=== PATIENT | male | born 1950 | race Caucasian/White ===

== ENCOUNTER 2022-11-23 14:50 | Inpatient (IN) ==
--- NOTE | 2022-11-23 18:24 | DR.UPDATE ---
H&P UPDATE Review Yes Any changes to H&P?: No
[2022-11-23 18:57] LABS: BASOPHILS # (AUTO) 0.1 X10^3/uL (0.0-0.1); BASOPHILS % (AUTO) 0.6 % (0.2-1.0); EOSINOPHILS # (AUTO) 0.3 x10^3/uL (0.0-0.2); EOSINOPHILS % (AUTO) 3.1 % (0.9-2.9); HEMATOCRIT 47.3 % (42.0-54.0); HEMOGLOBIN 16.6 g/dL (13.5-18.0); LYMPHOCYTES # (AUTO) 1.6 X10^3/uL (1.3-2.9); LYMPHOCYTES % (AUTO) 16.2 % (21.0-51.0); MEAN CORPUSCULAR HGB CONC 35.1 g/dL (33.0-35.0); MEAN CORPUSCULAR VOLUME 90.9 fL (80.0-100.0); MEAN PLATELET VOLUME 8.9 fL (7.4-11.0); MONOCYTES # (AUTO) 0.9 x10^3/uL (0.3-0.8); MONOCYTES % (AUTO) 9.1 % (0.0-13.0); NEUTROPHILS # (AUTO) 6.9 x10^3/uL (2.2-4.8); PLATELET COUNT 152 X10^3/uL (150.0-450.0); RED CELL DISTRIBUTION WIDTH 13.6 % (11.6-16.5); WHITE BLOOD COUNT 9.7 X10^3/uL (3.6-10.0)
[2022-11-23 19:10] LABS: ALANINE AMINOTRANSFERASE 20 Units/L (12-78); ALBUMIN 4.4 g/dL (3.4-5.0); ALKALINE PHOSPHATASE 71 Units/L (46-116); ASPARTATE AMINO TRANSFERASE 21 Units/L (15-37); BLOOD UREA NITROGEN 18 mg/dL (7-18); CALCIUM 8.8 mg/dL (8.5-10.1); CARBON DIOXIDE 28.6 mmol/L (21-32); CHLORIDE 100 mmol/L (98-107); CREATININE 0.97 mg/dL (0.70-1.30); GLUCOSE 106 mg/dL (65-99); POTASSIUM 3.3 mmol/L (3.5-5.1); SODIUM 138 mmol/L (136-145); TOTAL PROTEIN 7.4 g/dL (6.4-8.2); eGFR NON BLACK RACES > 60 (>60)
[2022-11-23 19:17] VITALS: BMI 28.6
--- NOTE | 2022-11-23 19:48 | EKG ---
Test Reason : surgery Blood Pressure : */* mmHG Vent. Rate : 53 BPM Atrial Rate : 53 BPM P-R Int : 130 ms QRS Dur : 98 ms QT Int : 452 ms P-R-T Axes : 16 -12 -16 degrees QTc Int : 424 ms Sinus bradycardia Nonspecific ST abnormality Abnormal ECG No previous ECGs available Confirmed by Kurt Rice ([id number]) on 11/24/2022 12:07:26 PM Referred By: Confirmed By: Kurt Rice
[2022-11-23] MEDS ORDERED: K-DUR TAB 20 MEQ PO ONE (20:00)
[2022-11-23] MEDS ORDERED: CONSULT PHARMACY - POTASSIUM & MAGNESIUM XX SCH (20:00)
[2022-11-23] MEDS: LR 1,000 ML IV 1,000 ML IV SCH (20:11)
[2022-11-23] MEDS: LOPRESSOR TAB 25 MG PO SCH (20:11)
[2022-11-23] MEDS: CRESTOR TAB 10 MG PO SCH (20:11)
[2022-11-23] MEDS: AMBIEN PO PRN (21:09)
[2022-11-23] MEDS: NEURONTIN CAP 400 MG PO SCH (21:09)
[2022-11-24] MEDS: NEURONTIN CAP 400 MG PO SCH ×3 (05:08→21:13)
[2022-11-24] MEDS ORDERED: NS 100 ML IV 100 ML ONE (05:26)
[2022-11-24] MEDS ORDERED: OMNIPAQUE 350 mg/mL 100 mL BTL 100 ML ONE (05:26)
[2022-11-24] MEDS ORDERED: OMNIPAQUE 350 mg/mL 50 mL BTL 50 ML ONE (05:26)
[2022-11-24] MEDS ORDERED: CONSULT PHARMACY - POTASSIUM & MAGNESIUM XX SCH (07:00)
--- NOTE | 2022-11-24 07:16 | CT ---
HISTORYCRITICAL ISCHEMIA LEFT LEG; REST PAIN RICARDO LEGSSTUDYCTA AORTA WITH RUNOFFCOMPARISONNoneTECHNIQUECTA of the abdomen and pelvis with bilateral lower extremity runoff obtained without and with IV contrast. Dose reduction techniques including Automated Exposure Control (AEC) and adjustment of mA and kV were utilized.FINDINGSVisualized portions of the lower thorax demonstrate no acute process. Post sternotomy changes. Coronary and aortic calcifications. Aortic valve prosthesis.No acute osseous abnormality. No acute soft tissue abnormality in either lower extremity.No evidence of aortic aneurysm or dissection. Scattered atherosclerotic calcifications throughout the aorta. The celiac artery, SMA, bilateral renal arteries, and SILVA appear patent with scattered atherosclerotic disease. Incidental duplicated bilateral renal arteries. The bilateral common, internal, and external iliac arteries are patent with multifocal atherosclerotic disease. Left external iliac stent is patent.The right common and deep femoral arteries are patent. Complete occlusion of the right superficial femoral artery with reconstitution at the right popliteal artery. The right anterior tibial, posterior tibial, and peroneal arteries are patent to the foot. Multifocal high-grade narrowing of the right posterior tibial artery.The left common and deep femoral arteries are patent. Complete occlusion of the left superficial femoral artery with reconstitution at the popliteal artery. The left anterior tibial, posterior tibial, and peroneal arteries are patent to the foot. Multifocal high-grade stenosis of the left posterior tibial artery.The liver, spleen, pancreas, bilateral adrenal glands, and bilateral kidneys demonstrate no acute process. Prior cholecystectomy.No evidence of bowel obstruction. Diverticulosis without evidence of diverticulitis. Moderate colonic stool. The appendix is not definitively visualized. No secondary signs of appendicitis. Small fat filled right inguinal hernia.The bladder is unremarkable. No free air or fluid. Prominent prostate.IMPRESSIONPatent 3 vessel runoff to both feet. Multifocal high-grade narrowing of the left and right posterior tibial arteries. 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
--- NOTE | 2022-11-24 07:26 | RAD ---
HISTORYPreop left lower extremity ischemiaSTUDYChest AP portableCOMPARISONNoneFINDINGSPatient is status post median sternotomy and valve replacement. Heart size is normal. Salome are normal. Lungs are generally hyperinflated but free of acute infiltrates. No pleural effusions are identified. Bony thorax is unremarkable.IMPRESSIONPostsurgical changes as aboveLungs hyperinflated but free of acute infiltrates consistent with COPD in the appropriate clinical settingElectronically signed by: CARLEY LANGE (Nov 24, 2022 07:24:23)
[2022-11-24] MEDS: PROTONIX TAB 40 MG PO SCH (08:41)
[2022-11-24] MEDS: LR 1,000 ML IV 1,000 ML IV SCH ×2 (08:41→21:15)
[2022-11-24] MEDS: K-DUR TAB 20 MEQ PO SCH ×2 (08:41→10:33)
[2022-11-24] MEDS: ASPIRIN EC 81 MG PO SCH (08:42)
[2022-11-24] MEDS: FLOMAX PO SCH (08:42)
--- NOTE | 2022-11-24 13:13 | NOTE.SOAP ---
Soap Note Note for Day of Date of Exam: 11/24/22 Subjective Data Subjective Data: Admitted with severe b/l rest pain of LE , L> R . CTA shows b/l SFA occlusion. Objective Data Temperature: 98.5 F Pulse Rate: 57 Respiratory Rate: 20 Blood Pressure: 135/65 O2 Sat by Pulse Oximetry: 94 Objective Data: No palpable pulses either ankle Assessment Assessment: b/l critiical LE ischemia Plan Plan: Aortogram, arteriogram left leg , probable atherectomy, angioplasty possible stent of left SFA artery tomorrow.
[2022-11-24] MEDS: LOPRESSOR TAB 25 MG PO SCH ×2 (14:08→21:13)
[2022-11-24] MEDS: PERCOCET TAB 5/325 MG PO PRN ×2 (17:22→23:01)
[2022-11-24] MEDS: CRESTOR TAB 10 MG PO SCH (21:13)
[2022-11-24] MEDS: AMBIEN PO PRN (21:14)
[2022-11-25] MEDS: NEURONTIN CAP 400 MG PO SCH ×4 (05:14→21:50)
[2022-11-25] MEDS ORDERED: CONSULT PHARMACY - POTASSIUM & MAGNESIUM XX SCH (07:00)
[2022-11-25] MEDS: LOPRESSOR TAB 25 MG PO SCH ×2 (08:10→20:30)
[2022-11-25] MEDS ORDERED: DIPRIVAN VIAL 20 ML ONE ×2 (09:54→14:11)
[2022-11-25] MEDS ORDERED: KETAMINE 50 MG/5 ML-NACL SYRNG ONE (09:54)
[2022-11-25] MEDS ORDERED: FENTANYL VIAL INJ 100 mcg ONE (09:54)
[2022-11-25] MEDS ORDERED: PRECEDEX INJ VIAL IVP ONE (09:54)
[2022-11-25] MEDS ORDERED: VERSED ONE (09:54)
[2022-11-25] MEDS ORDERED: OFIRMEV IV 1000 MG VIAL 1,000 MG/100 ML VIAL IV ONE (09:54)
[2022-11-25] MEDS ORDERED: PEPCID 20 MG VIAL ONE (09:56)
[2022-11-25] MEDS ORDERED: ZOFRAN INJ 4 MG VIAL ONE (09:56)
[2022-11-25] MEDS ORDERED: DILAUDID INJ IVP ONE (10:36)
[2022-11-25] MEDS: LR 1,000 ML IV 1,000 ML IV SCH ×2 (11:32→22:00)
[2022-11-25] MEDS ORDERED: POTASSIUM CHLORIDE INJ 40 MEQ VIAL 40 MEQ in NS 1/2 500 ML IV 500 ML IV ONE (12:00)
[2022-11-25] MEDS ORDERED: NS 100 ML IV 100 ML ONE (12:30)
[2022-11-25] MEDS ORDERED: ANCEF VIAL 1 GRAM ONE (12:30)
[2022-11-25] MEDS ORDERED: HEPARIN SODIUM IN D5W 75,000 UNITS/1,500 ML BAG ONE (13:06)
[2022-11-25] MEDS ORDERED: MARCAINE 0.5% ONE (13:06)
[2022-11-25] MEDS ORDERED: XYLOCAINE 2 % (PLAIN) ONE (13:12)
[2022-11-25] MEDS ORDERED: DECADRON INJ ONE (13:23)
[2022-11-25] MEDS ORDERED: ROBINUL ONE (13:29)
[2022-11-25] MEDS ORDERED: EPHEDRINE SULFATE INJ ONE (13:35)
[2022-11-25] MEDS ORDERED: VISIPAQUE 100 ML ONE (13:42)
[2022-11-25] MEDS ORDERED: HEPARIN SODIUM INJ 5000 UNITS ONE (13:59)
[2022-11-25] MEDS ORDERED: NS 1,000 ML IV 1,000 ML ONE (14:07)
[2022-11-25] MEDS ORDERED: PROTAMINE SULFATE 50 MG VIAL ONE (14:57)
[2022-11-25] MEDS: ASPIRIN EC 81 MG PO SCH (15:28)
[2022-11-25] MEDS: PROTONIX TAB 40 MG PO SCH (15:39)
[2022-11-25] MEDS: FLOMAX PO SCH (15:39)
[2022-11-25] MEDS: XARELTO PO SCH (20:29)
[2022-11-25] MEDS: CRESTOR TAB 10 MG PO SCH (20:30)
[2022-11-25] MEDS: PERCOCET TAB 5/325 MG PO PRN (20:31)
[2022-11-25] MEDS ORDERED: K-DUR TAB 20 MEQ PO SCH (21:00)
[2022-11-25] MEDS: AMBIEN PO PRN (21:50)
[2022-11-26] MEDS: PERCOCET TAB 5/325 MG PO PRN (01:57)
[2022-11-26 05:20] LABS: BLOOD UREA NITROGEN 8 mg/dL (7-18); CALCIUM 8.4 mg/dL (8.5-10.1); CHLORIDE 103 mmol/L (98-107); COR NA(FOR HYPERGLY) 137 mmol/L (136-145); CREATININE 0.87 mg/dL (0.70-1.30); GLUCOSE 114 mg/dL (65-99); POTASSIUM 4.5 mmol/L (3.5-5.1); SODIUM 137 mmol/L (136-145); eGFR NON BLACK RACES > 60 (>60)
[2022-11-26] MEDS: NEURONTIN CAP 400 MG PO SCH (05:46)
[2022-11-26 09:17] VITALS: BP 132/61; PULSE 56; RESP 20; TEMP 97.6; O2SAT 97
[2022-11-26] MEDS: ASPIRIN EC 81 MG PO SCH (10:11)
[2022-11-26] MEDS: XARELTO PO SCH (10:11)
[2022-11-26] MEDS: PROTONIX TAB 40 MG PO SCH (10:12)
[2022-11-26] MEDS: LOPRESSOR TAB 25 MG PO SCH (10:12)
[2022-11-26] MEDS: FLOMAX PO SCH (10:12)
--- NOTE | 2022-11-30 19:58 | OR.IMMED ---
IMMEDIATE POST-OP NOTE Immediate Post-Op Note Pre-Op Diagnosis: Critical ischemia critical ischemia left leg with rest pain Post-Op Diagnosis: same Procedure: aortogram , arteriogram left leg, atherectomy and stenting of the entire left superficial femoral artery Surgeon/Time Buyer: Allison Findings: multiple bilateral iliac artery stents, completely occluded left superficial femoral artery from just beyond its take off all the way to the popliteal artery Estimated Blood Loss: 200cc Complications: none, urine noted to be red when Harley catheter place will observe and leave Harley in for now Progress Notes: return to floor leave Harley catheter in place. Begin aspirin and Xarelto ,probably discharge tomorrow. Will need right leg superficial femoral artery occlusion addressed in the near future. Right leg not as bad as the left.
--- NOTE | 2022-12-01 09:10 | DR.OPNOTE ---
OP NOTE Pre-Op Diagnosis: Critical ischemia left leg Post-Op Diagnosis: same Procedure Date Date Of Procedure: 11/25/22 Procedure: PROCEDURE: DIAGNOSTIC AORTOGRAM, DIAGNOSTIC ARTERIOGRAM LEFT LEG , ATHERECTOMY AND DRUG COATED STENTING OF ENTIRE LEFT SUPERFICIAL FEMORAL ARTERY NARRATIVE : The patient was taken to the operative suite and place in the supine position. The right groin and entire left leg were prepped and draped in sterile fashion. The patient was given intravenous sedation supervised by myself. Time out for the procedure obtained. Ultrasound used to identify the right femoral artery and the skin overlying it infiltrated with 0.5% Marcaine. Ultrasound then used to guide puncture of the right femoral artery and a 0.012 inch guide wire was placed. Incision made over the guide wire at the skin edge with a # 11 knife blade and a micro sheath placed over the guide wire into the right femoral artery The small guidewire exchanged for a 0.035 inch Advantage glide wire and the micro sheath exchanged for a 5 Fr vascular sheath. Patient given 5000 units of intravenous heparin. Omni catheter was placed over the guide wire into the aorta and diagnostic aortogram carried out with the power injector showing normal aorta and iliac arteries . Omni catheter was used to steer the guide wire down the left common iliac artery to the distal left external iliac artery . Omni catheter was exchanged for a [place] catheter and sequential arteriograms carried out of the left lower extremity showing complete occlusion of the left superficial femoral artery beginning at his take off with reconstitution of the mid popliteal artery . The 5 Fr sheath in the right groin was exchanged for a 7 Fr destination sheath which was parked in distal left external iliac artery .[place] catheter and the guide wire were used to traverse the arteries of the left leg ultimately ending in the left peroneal artery . This was selective catheterization. 0.035 inch wire removed and exchanged for a 0.014 inch wire. Over this wire we placed the [place] atherectomy device and performed atherectomy of the entire left superficial femoral artery . At this point three Caroline drug coated stents were placed sequentially in the left superficial femoral artery beginning distally with an Caroline 6mmx 150 mm drug coated stent , then another 6mx 150 mm Caroline drug coated stent and finally an Caroline 7mm x 150 mm Caroline drug coated stent .Stents had minimal overlap and the were all post balloon dilated with a [place] 5 mmx 200 mm angioplasty balloon. At the completion of this a follow up arteriogram showed excellent flow all the way to the left foot . All wires and devices removed. The 7 Fr sheath was pulled back into the aorta and a 0.035 inch wire placed. The destination sheath exchanged for an Angioseal device used to close the puncture of the right femoral artery. .Dressing applied to the left groin. The patient taken to same day surgery in good condition. Type of Anesthesia: Local (0.5 % Marcaine ) Anesthesia Comment: plus MAC Findings: completely occluded left superficial femoral artety Type of Fluids Used:: Lactated Ringers Total Amount of Fluid Infused:: 400 cc Urine output: 800 cc EBL: 200 cc Hardware: multiple superficial femoral artery drug eluting stents , see operative summary above for details Complications:: none Needle/Sponge Count:: correct Disposition/Condition: Pt. tolerated procedure without difficulty. Taken to the floor in stable condition.
--- NOTE | 2022-12-04 01:16 | W.DIS.FURT ---
Summary of Discharge Discharge Summary of Date Date of Exam: 11/26/22 Admission Date Date of Admission: 11/23/22 Admission Diagnosis Hospital Course: This 72 year old male was evaluated in the office for severe rest pain of both lower extremities. He was admitted that day on November 24, [address] angiogram showing complete occlusion of both superficial femoral arteries. He underwent evaluation and was taken to the operating Suite on November 25 where he underwent aortogram and arteriogram of the left lower extremity with stenting of the entire left superficial femoral artery after atherectomy . Drug coated stents were used. He has done well and will be discharged home on November 26. He will be continued on aspirin 81 mg daily and Xarelto 2.5 mg BID in addition to his usual home medications. He will follow up with me in one week. When he seen in follow-up we will schedule arterial intervention of the right leg in the near future. Labs: Laboratory Last Values WBC 9.7 X10^3/uL (3.6-10.0) 11/23/22 18:31 RBC 5.20 X10^6/uL (4.7-6.0) 11/23/22 18:31 Hgb 16.6 g/dL (13.5-18.0) 11/23/22 18:31 Hct 47.3 % (42.0-54.0) 11/23/22 18:31 MCV 90.9 fL (80.0-100.0) 11/23/22 18:31 MCH 32.0 pg (27.0-34.0) 11/23/22 18:31 MCHC 35.1 g/dL (33.0-35.0) H 11/23/22 18:31 RDW 13.6 % (11.6-16.5) 11/23/22 18:31 Plt Count 152 X10^3/uL (150.0-450.0) 11/23/22 18:31 MPV 8.9 fL (7.4-11.0) 11/23/22 18:31 Neut % (Auto) 71.0 % (42.0-75.0) 11/23/22 18:31 Lymph % (Auto) 16.2 % (21.0-51.0) L 11/23/22 18:31 [place] % (Auto) 9.1 % (0.0-13.0) 11/23/22 18:31 Eos % (Auto) 3.1 % (0.9-2.9) H 11/23/22 18:31 Baso % (Auto) 0.6 % (0.2-1.0) 11/23/22 18:31 Neut # (Auto) 6.9 x10^3/uL (2.2-4.8) H 11/23/22 18:31 Lymph # (Auto) 1.6 X10^3/uL (1.3-2.9) 11/23/22 18:31 [place] # (Auto) 0.9 x10^3/uL (0.3-0.8) H 11/23/22 18:31 Eos # (Auto) 0.3 x10^3/uL (0.0-0.2) H 11/23/22 18:31 Baso # (Auto) 0.1 X10^3/uL (0.0-0.1) 11/23/22 18:31 Absolute Nucleated RBC 0.2 /100WBC 11/23/22 18:31 Sodium 137 mmol/L (136-145) 11/26/22 04:30 Corrected Sodium 137 mmol/L (136-145) 11/26/22 04:30 Potassium 4.5 mmol/L (3.5-5.1) 11/26/22 04:30 Chloride 103 mmol/L (98-107) 11/26/22 04:30 Carbon Dioxide 26.0 mmol/L (21-32) 11/26/22 04:30 BUN 8 mg/dL (7-18) 11/26/22 04:30 Creatinine 0.87 mg/dL (0.70-1.30) 11/26/22 04:30 Est GFR (MDRD) Af Amer > 60 (>60) 11/26/22 04:30 Est GFR (MDRD) Non-Af > 60 (>60) 11/26/22 04:30 Glucose 114 mg/dL (65-99) H 11/26/22 04:30 Calcium 8.4 mg/dL (8.5-10.1) L 11/26/22 04:30 Corrected Calcium TNP 11/23/22 18:31 Magnesium 2.2 mg/dL (2.0-2.9) 11/24/22 07:20 Total Bilirubin 0.90 mg/dL (0.2-1.0) 11/23/22 18:31 AST 21 Units/L (15-37) 11/23/22 18:31 ALT 20 Units/L (12-78) 11/23/22 18:31 Alkaline Phosphatase 71 Units/L (46-116) 11/23/22 18:31 Total Protein 7.4 g/dL (6.4-8.2) 11/23/22 18:31 Albumin 4.4 g/dL (3.4-5.0) 11/23/22 18:31 Globulin 3.0 g/dL (2.5-4.5) 11/23/22 18:31 Albumin/Globulin Ratio 1.5 Ratio (1.1-2.1) 11/23/22 18:31 Reason For Visit: CRITICAL ISCHEMIA LEFT LEG Discharge Date Discharge Date: 11/26/22 Discharge Diagnosis All Active Problems (Updated 11/26/22 @ 09:15 by Indra Cooper) Atherosclerosis of [place] arteries of extremities with rest pain, left leg (Acute) UTI (urinary tract infection) (Acute) Plan of Treatment: Continue with present treatment and follow up plan. Pt is to keep follow up appointment as instructed and take medications as ordered. Discharge Medications Discharge Medications: Penicillins Allergy (Verified 01/22/20 12:03) CONTINUE taking the following medications famotidine 20 mg tablet 20 mg PO BID PRN 11/23/22 [History] furosemide 40 mg tablet 40 mg PO QDAY 11/23/22 [History] gabapentin 400 mg capsule 400 mg PO TID 11/23/22 [History] metoprolol tartrate 25 mg tablet 25 mg PO BID 11/23/22 [History] rosuvastatin 10 mg tablet 10 mg PO QPM 11/23/22 [History] tamsulosin 0.4 mg capsule 0.4 mg PO QDAY 11/23/22 [History] New Prescriptions aspirin 81 mg capsule 81 mg PO QDAY #180 caps 11/26/22 [Rx] oxycodone-acetaminophen 2.5 mg-325 mg tablet (Percocet) 1 tab PO Q6H PRN #20 tabs 11/26/22 [Rx] rivaroxaban 2.5 mg tablet (Xarelto) 2.5 mg PO BID #180 tabs 11/26/22 [Rx] Discharge Plan Discharge Plan Hospital Course: This 72 year old male was evaluated in the office for severe rest pain of both lower extremities. He was admitted that day on November 24, [address] angiogram showing complete occlusion of both superficial femoral arteries. He underwent evaluation and was taken to the operating Suite on November 25 where he underwent aortogram and arteriogram of the left lower extremity with stenting of the entire left superficial femoral artery after atherectomy . Drug coated stents were used. He has done well and will be discharged home on November 26. He will be continued on aspirin 81 mg daily and Xarelto 2.5 mg BID in addition to his usual home medications. He will follow up with me in one week. When he seen in follow-up we will schedule arterial intervention of the right leg in the near future. Patient Disposition: , SELF-CARE Condition: Stable Health Concerns: Post Hospitalization: new medications and changes needed to prevent readmission or further decline. Pt educated and given instructions on all concerns. Plan of Treatment: Continue with present treatment and follow up plan. Pt is to keep follow up appointment as instructed and take medications as ordered. Prescriptions: New aspirin 81 mg capsule 81 mg PO QDAY Qty: 180 0RF Xarelto 2.5 mg tablet 2.5 mg PO BID Qty: 180 0RF oxycodone-acetaminophen [Percocet] 2.5-325 mg tablet 1 tab PO Q6H MDD 4 PRNQty: 20 0RF Continued furosemide 40 mg tablet 40 mg PO QDAY gabapentin 400 mg capsule 400 mg PO TID famotidine 20 mg tablet 20 mg PO BID PRN tamsulosin 0.4 mg capsule 0.4 mg PO QDAY rosuvastatin 10 mg tablet 10 mg PO QPM metoprolol tartrate 25 mg tablet 25 mg PO BID Follow ups/Referrals Follow ups/Referrals: Indra Cooper [STAFF PHYSICIAN] - 12/07/22 4:00 pm Instructions Instructions: Atherosclerosis Stand Alone Forms: Excuse From Work or School, Post Hospital Follow Up Care
== END 2022-11-26 11:30 | disposition home or self-care (01) | DRG 272 ==
LOC: MED/SURG 17:02
PROVIDERS: ADMIT Surgery; ATTEND Surgery